=== PATIENT | female | born 1955 | race Caucasian/White ===

== ENCOUNTER 2016-11-01 10:19 | Emergency (ER) | payer OTHER ==
[~2016-11-01] VITALS: Ht 170.2 cm; Wt 64.4 kg
[~2016-11-01 10:19] MED LIST: ATORVASTATIN CA20 MG ORAL; COZAAR50 MG ORAL; ECOTRIN81 MG ORAL; FIORINAL 50-321 EACH PO; GABAPENTIN100 MG ORAL; IBUPROFEN600 MG ORAL; KLONOPIN0.5 MG ORAL; LIPITOR10 MG ORAL; LOSARTAN-HCTZ1 EAC2 ORAL; MAG-OX 400400 MG ORAL; MICARDIS HCT 81 EAC1 ORAL; NORVASC5 MG ORAL; RESTORIL30 MG ORAL; SERTRALINE HCL25 MG ORAL; TOPAMAX25 MG ORAL; TOPIRAMATE25 MG ORAL; TRAMADOL HCL50 MG ORAL; XANAX0.5 MG ORAL; ZANAFLEX4 MG ORAL
[2016-11-01 11:00] LABS: BASOPHILS % (AUTO) 1.4 % (0.0-2.0); EOSINOPHILS % (AUTO) 2.1 % (0.0-3.0); LYMPHOCYTES % (AUTO) 29.4 % (20.0-45.0); MEAN CORPUSCULAR HGB CONC 34.8 G/DL (32.0-36.0); MEAN CORPUSCULAR VOLUME 95 FL (80-99); MEAN PLATELET VOLUME 6.1 FL (6.5-10.1); MONOCYTES % (AUTO) 7.9 % (1.0-10.0); NEUTROPHILS % (AUTO) 59.2 % (45.0-75.0); PLATELET COUNT 253 K/UL (150-450); RED BLOOD COUNT 4.54 M/UL (4.20-5.40); RED CELL DISTRIBUTION WIDTH 11.3 % (11.6-14.8); WHITE BLOOD COUNT 4.9 K/UL (4.8-10.8)
[2016-11-01 11:04] LABS: INR 0.9 (0.9-1.1); PROTHROMBIN TIME 9.7 SEC (9.30-11.50)
[2016-11-01 11:12] LABS: ALBUMIN/GLOBULIN RATIO 1.9 (1.0-2.7); CALCIUM 9.7 mg/dL (8.6-10.2); GLOMERULAR FILTRATION RATE 56.2 mL/min (>60); POTASSIUM 4.4 mEQ/L (3.4-4.9); TOTAL PROTEIN 7.6 g/dL (6.6-8.7)
--- NOTE | 2016-11-01 11:15 | Diagnostic Imaging Report ---
Indications: Fall, head trauma, left arm weakness, unsteady gait, code stroke Technique: Continuous helical CT imaging of the brain was performed with automatic exposure control on a Siemens sensation [address] scanner. Axial and coronal images were reconstructed at 5 mm slice thickness and interval. CTDI volume(s): 70 mGy Total DLP: 1389 mGy-cm Findings: Comparison: 01/04/16 Old infarct right femoral peduncle/thalamus/oleary radiata with ex vacuo dilation of right lateral ventricle, old lacunar infarct left thalamus, chronic microvascular ischemic changes throughout bilateral cerebral periventricular and deep white matter, diffuse atrophy unchanged.. No evidence of mass or hemorrhage, other new attenuation abnormality, mass effect, midline shift, hydrocephalus or increased intracranial pressure. Bone window images are unremarkable. Visualized paranasal sinuses and mastoid air cells are clear.. Multiple scalp nodules again noted. IMPRESSION: No evidence of acute intracranial pathology, unchanged. Early/subtle acute abnormalities may be missed, however. If clinically indicated, MRI of the brain without and with gadolinium may be of benefit in further evaluation Stable chronic intracranial changes as described. Stable scalp nodules--consider sebaceous cysts, neurofibromatosis Critical results discussed with Dr. Childers, ER physician , by telephone at time of this dictation The CT scanner at [facility] is accredited by the [employer] and the scans are performed using protocols designed to limit radiation exposure to as low as reasonably achievable to attain images of sufficient resolution adequate for diagnostic evaluation.
[2016-11-01 11:30] VITALS: BP 168/97
[2016-11-01 12:23] LABS: APPEARANCE,URINE CLEAR; KETONES,URINE NEGATIVE (NEGATIVE); LEUKOCYTE ESTERASE ,URINE 1+ (NEGATIVE); NITRITE,URINE NEGATIVE (NEGATIVE); PH,URINE 6.5 (4.5-8.0); PROTEIN,URINE NEGATIVE (NEGATIVE); UROBILINOGEN,URINE NORMAL MG/DL (0.0-1.0)
[2016-11-01 12:30] VITALS: BP 177/110
[2016-11-01 12:39] LABS: BACTERIA,URINE FEW /HPF; RBC,URINE 0-2 /HPF (0 - 2); SQUAMOUS EPITHELIAL CELL,UR FEW /LPF (NONE/OCC); WBC,URINE 0-2 /HPF (0 - 2)
[2016-11-01 13:28] VITALS: BP 154/106
--- NOTE | 2016-11-01 13:35 | Emergency Room Report ---
History of Present Illness General Chief Complaint: Altered Mental Status Source: Patient Present Illness HPI The patient states that she tripped and fell last night. She states she hit her chin. She did call one of her friends over to see her at her home. Her friend dropped a glass and she has some cuts from the broken glass on her foot. She did apply Betadine. She had a tetanus shot 4 years ago. She has pain in her chin. She denies headache or weakness. She states that she did take an antianxiety medication yesterday. This was in addition to a sleeping pill that she takes. She denies alcohol use or drug use. She has no other complaints. Allergies: Coded Allergies: NO KNOWN ALLERGIES (Verified Allergy, Unknown, 01/04/16) Patient History Past Medical History: see triage record, HTN, CVA/TIA, migraines, psych hx Past Surgical History: hysterectomy Social History: Denies: alcohol use, drug use, smoking Reviewed Nursing Documentation: PMH: Agreed, PSxH: Agreed Nursing Documentation-PMH Hx Cardiac Problems: Yes Hx Hypertension: Yes Hx Cancer: Yes - Uterine Hx Gastrointestinal Problems: No Hx Neurological Problems: Yes Hx Cerebrovascular Accident: Yes Hx Transient Ischemic Attacks: Yes Review of Systems All Other Systems: negative except mentioned in HPI Physical Exam Vital Signs Date Time Temp Pulse Resp B/P Pulse Ox O2 Delivery O2 Flow Rate FiO2 11/01/16 10:29 98.2 66 16 183/92 95 Room Air Sp02 EP Interpretation: reviewed, normal General Appearance: no apparent distress, alert, GCS 15, non-toxic Head: normocephalic, other - Ecchymoses over the right chin and tenderness to palpation. Eyes: bilateral eye PERRL, bilateral eye normal inspection ENT: hearing grossly normal, normal pharynx, no angioedema, normal voice Neck: full range of motion, supple/symm/no masses Respiratory: chest non-tender, lungs clear, normal breath sounds, speaking full sentences Cardiovascular #1: regular rate, rhythm, no edema Gastrointestinal: normal bowel sounds, non tender, soft, non-distended, no guarding, no rebound Rectal: deferred Musculoskeletal: back normal, gait/station normal, normal range of motion, non- tender Neurologic: alert, oriented x3, responsive, motor strength/tone normal, sensory intact, speech normal Psychiatric: judgement/insight normal, memory normal, mood/affect normal, no suicidal/homicidal ideation Skin: normal color, no rash, warm/dry, well hydrated, other - Scattered abrasions on the top of the feet bilaterally. Medical Decision Making Diagnostic Impression: Primary Impression: Fall Additional Impressions: Facial contusion Multiple abrasions ER Course This patient presents status post mechanical trip and fall last night. The patient underwent CT of the head and face which is no acute findings. Specifically, there is no evidence of intracranial bleed or facial fracture. The patient has a facial contusion and multiple superficial abrasions on her bilateral feet. Overall, the patient's well-appearing. Laboratory workup showed an elevated creatinine at 1.0. The BUN is also slightly elevated and I suspect this is prerenal secondary to mild dehydration. The patient was educated extensively on the importance of increasing fluid intake. The patient indicated understanding. The patient's given close return precautions and followup instructions. Labs Test 11/01/16 10:54 11/01/16 12:00 White Blood Count 4.9 K/UL (4.8-10.8) Red Blood Count 4.54 M/UL (4.20-5.40) Hemoglobin 15.0 G/DL (12.0-16.0) Hematocrit 43.0 % (37.0-47.0) Mean Corpuscular Volume 95 FL (80-99) Mean Corpuscular Hemoglobin 33.0 PG (27.0-31.0) Mean Corpuscular Hemoglobin Concent 34.8 G/DL (32.0-36.0) Red Cell Distribution Width 11.3 % (11.6-14.8) Platelet Count 253 K/UL (150-450) Mean Platelet Volume 6.1 FL (6.5-10.1) Neutrophils (%) (Auto) 59.2 % (45.0-75.0) Lymphocytes (%) (Auto) 29.4 % (20.0-45.0) Monocytes (%) (Auto) 7.9 % (1.0-10.0) Eosinophils (%) (Auto) 2.1 % (0.0-3.0) Basophils (%) (Auto) 1.4 % (0.0-2.0) Prothrombin Time 9.7 SEC (9.30-11.50) Prothromb Time International Ratio 0.9 (0.9-1.1) Activated Partial Thromboplast Time 26 SEC (23-33) Sodium Level 143 mEQ/L (135-145) Potassium Level 4.4 mEQ/L (3.4-4.9) Chloride Level 100 mEQ/L (98-107) Carbon Dioxide Level 26 mEQ/L (20-30) Anion Gap 17 (5-15) Blood Urea Nitrogen 27 mg/dL (7-23) Creatinine 1.0 mg/dL (0.5-0.9) Estimat Glomerular Filtration Rate 56.2 mL/min (>60) Glucose Level 113 mg/dL (74-106) Calcium Level 9.7 mg/dL (8.6-10.2) Total Bilirubin 0.6 mg/dL (0.0-1.2) Aspartate Amino Transf (AST/SGOT) 16 U/L (5-40) Alanine Aminotransferase (ALT/SGPT) 14 U/L (3-33) Alkaline Phosphatase 85 U/L (35-104) Total Protein 7.6 g/dL (6.6-8.7) Albumin 5.0 g/dL (3.5-5.2) Globulin 2.6 g/dL Albumin/Globulin Ratio 1.9 (1.0-2.7) Urine Color Pale yellow Urine Appearance Clear Urine pH 6.5 (4.5-8.0) Urine Specific [place] 1.010 (1.005-1.035) Urine Protein Negative (NEGATIVE) Urine Glucose (UA) Negative (NEGATIVE) Urine Ketones Negative (NEGATIVE) Urine Occult Blood Negative (NEGATIVE) Urine Nitrite Negative (NEGATIVE) Urine Bilirubin Negative (NEGATIVE) Urine Urobilinogen Normal MG/DL (0.0-1.0) Urine Leukocyte Esterase 1+ (NEGATIVE) Urine RBC 0-2 /HPF (0 - 2) Urine WBC 0-2 /HPF (0 - 2) Urine Squamous Epithelial Cells Few /LPF (NONE/OCC) Urine Bacteria Few /HPF (NONE) EKG Diagnostic Results Rate: bradycardiac Rhythm: other ST Segments: no acute changes Other Impression S.russell w/ 1st degree AV block. Rhythm Strip Diag. Results EP Interpretation: yes Rate: 50's Rhythm: no PVC's, no ectopy Other Impression S.bradycardia CT/MRI/US Diagnostic Results CT/MRI/US Diagnostic Results : Imaging Test Ordered: CT head, CT max/facial Impression No facial fracture. No acute intracranial process. Last Vital Signs Date Time Temp Pulse Resp B/P Pulse Ox O2 Delivery O2 Flow Rate FiO2 11/01/16 12:30 65 18 177/110 99 Room Air 11/01/16 10:29 98.2 Disposition: HOME, SELF-CARE Condition: Improved Referrals: [facility],REFERRING (PCP) JOANNE OJEDA D.O. Nov 01, 2016 13:35
--- NOTE | 2016-11-04 18:42 | Cardiology Report ---
APPROVED REPORT EKG Measurement Heart [id number] Sinus bradycardia with 1st degree AV block Left axis deviation Possible Anterior infarct, age undetermined Abnormal ECG
== END 2016-11-01 13:41 | disposition home or self-care (01) ==
LOC: EMR 10:53
DX: S00.83XA Contusion of other part of head, initial encounter (principal); S90.811A Abrasion, right foot, initial encounter; S90.812A Abrasion, left foot, initial encounter; W25.XXXA Contact with sharp glass, initial encounter; Y92.89 Other specified places as the place of occurrence of the external cause; I10 Essential (primary) hypertension; Z85.42 Personal history of malignant neoplasm of other parts of uterus; Z86.73 Personal history of transient ischemic attack (TIA), and cerebral infarction without residual deficits
CPT/HCPCS: 36415; 70450; 70486; 80053; 81003; 82962; 85025; 85610; 85730; 93005; 96360

== ENCOUNTER → 2016-12-29 | Emergency (ER) | payer OTHER ==
[~2016-12-29] VITALS: Ht 170.2 cm; Wt 69.9 kg
[~2016-12-29] MED LIST changes: +KEFLEX500 MG ORAL
--- NOTE | 2016-12-29 13:35 | Emergency Room Report ---
History of Present Illness General Chief Complaint: Foreign Body Source: Medical Record Present Illness HPI [id number] with abrasion to ball of left foot after "checking out a work site" last night. Was wearing "thick tennis socks" but no shoes [place] something scrape her foot Tetanus updated 2 years ago Decreased sensation to left foot from prior CVA Allergies: Coded Allergies: NO KNOWN ALLERGIES (Verified Allergy, Unknown, 01/04/16) Patient History Past Medical History: CVA/TIA Past Surgical History: none Pertinent Family History: none Social History: Denies: alcohol use, drug use, smoking Last Menstrual Period: post Now: No Immunizations: UTD Reviewed Nursing Documentation: PMH: Agreed, PSxH: Agreed Nursing Documentation-PMH Past Medical History: No History, Except For Hx Cardiac Problems: Yes Hx Hypertension: Yes Hx Cancer: Yes - Uterine Hx Gastrointestinal Problems: No Hx Neurological Problems: Yes Hx Cerebrovascular Accident: Yes Hx Transient Ischemic Attacks: Yes Review of Systems All Other Systems: negative except mentioned in HPI Physical Exam Vital Signs Date Time Temp Pulse Resp B/P Pulse Ox O2 Delivery O2 Flow Rate FiO2 12/29/16 12:32 97.3 78 18 161/94 98 Room Air Sp02 EP Interpretation: reviewed, normal General Appearance: normal inspection, well appearing, no apparent distress, alert Head: normocephalic, atraumatic ENT: normal ENT inspection, hearing grossly normal, normal voice Neck: normal inspection, full range of motion, supple, no bony tend Respiratory: normal inspection, lungs clear, normal breath sounds, no respiratory distress, no retraction, no wheezing Cardiovascular #1: regular rate, rhythm, no edema Gastrointestinal: normal inspection, normal bowel sounds, non tender, soft, no guarding, no hernia Genitourinary: no CVA tenderness Musculoskeletal: normal inspection, back normal, normal range of motion, Ethan' s Sign negative Neurologic: normal inspection, alert, oriented x3, responsive, surgical specialist III-XII nml as tested, speech normal, other - Left upper/lower extremity: 3/5 strength. Mild contorsion of extremities Skin: other - Left foot ball: 2cm abrasion, skin tear. No FB. No bleeding. No sign of infection. Sensation intact Medical Decision Making Diagnostic Impression: Primary Impression: Abrasion foot/toe ER Course PPx Keflex for Abx Tetanus already up to date PMD followup as needed DC home Last Vital Signs Date Time Temp Pulse Resp B/P Pulse Ox O2 Delivery O2 Flow Rate FiO2 12/29/16 12:32 97.3 78 18 161/94 98 Room Air Status: improved Disposition: HOME, SELF-CARE Condition: Improved Scripts Cephalexin* (KEFLEX*) 500 Mg Capsule 500 MG ORAL Q6H for 7 Days, #28 CAP 0 Refills Prov: AC WHEAT M.D. 12/29/16 Patient Instructions: Abrasion, [id number] Additional Instructions: - Take antibiotics as prescribed to prevent infection - Change dressing daily - Follow up with your doctor in 1 week as needed AC WHEAT M.D. Dec 29, 2016 13:35
[2016-12-29 13:37] VITALS: BP 161/94
== END | disposition home or self-care (01) ==
LOC: EMR 13:28
DX: S90.812A Abrasion, left foot, initial encounter (principal); X58.XXXA Exposure to other specified factors, initial encounter; Y93.9 Activity, unspecified; Y92.9 Unspecified place or not applicable; Z86.73 Personal history of transient ischemic attack (TIA), and cerebral infarction without residual deficits; I10 Essential (primary) hypertension; Z85.42 Personal history of malignant neoplasm of other parts of uterus
CPT/HCPCS: 99283

== ENCOUNTER 2017-06-18 16:10 | Emergency (ER) | payer OTHER ==
[~2017-06-18] VITALS: Ht 167.6 cm; Wt 70.3 kg
[2017-06-18] MEDS ORDERED: Dicyclomine HCl 10mg/5ml oral soln ORAL ONE (16:30)
[2017-06-18 17:00] VITALS: BP 134/80
[2017-06-18 17:55] LABS: APPEARANCE,URINE CLEAR; BILIRUBIN, URINE NEGATIVE (NEGATIVE); GLUCOSE, URINE (UA) NEGATIVE (NEGATIVE); KETONES,URINE NEGATIVE (NEGATIVE); LEUKOCYTE ESTERASE ,URINE NEGATIVE (NEGATIVE); NITRITE,URINE NEGATIVE (NEGATIVE); PH,URINE 5 (4.5-8.0); PROTEIN,URINE 1+ (NEGATIVE); UROBILINOGEN,URINE NORMAL MG/DL (0.0-1.0)
[2017-06-18 17:58] LABS: COLOR,URINE YELLOW
--- NOTE | 2017-06-18 18:23 | Emergency Room Report ---
History of Present Illness General Chief Complaint: General Complaint Present Illness HPI 62-year-old female presents to the emergency department complaining of cough, increased nasal congestion and phlegm, vomiting and diarrhea x3 days. Patient denies abdominal pain/tenderness. Denies recent travel. Reports fevers, chills and increase in urinary frequency. Denies orthopnea or swelling of the LE's. Denies CP, Palpitations, LOC, AMS, dizziness, Changes in Vision, Sensation , paresthesias, or a sudden severe headache. Allergies: Coded Allergies: NO KNOWN ALLERGIES (Verified Allergy, Unknown, 01/04/16) Patient History Past Medical History: see triage record, CVA/TIA Past Surgical History: none Pertinent Family History: none Immunizations: UTD Reviewed Nursing Documentation: PMH: Agreed, PSxH: Agreed Nursing Documentation-PMH Hx Cardiac Problems: Yes Hx Hypertension: Yes Hx Cancer: Yes - Uterine Hx Gastrointestinal Problems: No Hx Neurological Problems: Yes Hx Cerebrovascular Accident: Yes Hx Transient Ischemic Attacks: Yes Review of Systems All Other Systems: negative except mentioned in HPI Physical Exam Vital Signs Date Time Temp Pulse Resp B/P (MAP) Pulse Ox O2 Delivery O2 Flow Rate FiO2 06/18/17 16:19 97.9 68 20 137/86 94 Room Air Sp02 EP Interpretation: reviewed, normal General Appearance: well appearing, no apparent distress, alert, GCS 15, non- toxic Head: normocephalic, atraumatic ENT: hearing grossly normal, normal pharynx, normal voice, uvula midline Neck: full range of motion, no meningismus Respiratory: lungs clear, normal breath sounds, speaking full sentences, wheezing Cardiovascular #1: regular rate, rhythm, no edema Gastrointestinal: normal bowel sounds, non tender, soft Rectal: deferred Genitourinary: normal inspection Musculoskeletal: back normal, gait/station normal, normal range of motion, non- tender Neurologic: alert, oriented x3, responsive, motor strength/tone normal, sensory intact, normal gait, speech normal, grossly normal Psychiatric: judgement/insight normal Skin: normal color, no rash, warm/dry, well hydrated Lymphatic: no adenopathy Medical Decision Making PA Attestation Dr. Soares is my supervising Physician whom patient management has been discussed with. Diagnostic Impression: Primary Impression: Upper respiratory infection, acute Additional Impressions: Cough Diarrhea Qualified Codes: R19.7 - Diarrhea, unspecified ER Course Pt. presents to the ED c/o cough congestion bodyaches, fevers, chills and headaches x [ ] Ddx considered but are not limited to URI, pneumonia, PE, strep pharyngitis, meningitis. Vital signs: Pt. is afebrile, the remaining VS are WNL H&PE are most consistent with URI- no meningeal signs, oropharynx is not involved, no evidence of bacterial infection at this time. ORDERS: n CXR: unremarkable -- UA: WNL ED INTERVENTIONS: None required at this time. --PT. EDUCATION: Discussed antibiotic resistance with inappropriate prescribing of antibiotics for viral illnesses. Discussed signs and symptoms to indicate viral illness versus bacterial illness. DISCHARGE: At this time pt. is stable for d/c to home. Will provide printed patient care instructions, and any necessary prescriptions. Care plan and follow up instructions have been discussed with the patient prior to discharge. Chest X-Ray Diagnostic Results Chest X-Ray Diagnostic Results : Chest X-Ray Ordered: Yes # of Views/Limited/Complete: 1 View Indication: Shortness of Breath EP Interpretation: Yes ED Xray: Interpretation reviewed, by supervising MD, and agrees with findings. Interpretation: no consolidation, no effusion, no pneumothorax, no acute cardiopulmonary disease Impression: No acute disease Electronically Signed by: Earlene Jara PA-C Last Vital Signs Date Time Temp Pulse Resp B/P (MAP) Pulse Ox O2 Delivery O2 Flow Rate FiO2 06/18/17 17:00 78 20 134/80 94 Room Air 06/18/17 16:19 97.9 Disposition: HOME, SELF-CARE Condition: Stable Scripts Oseltamivir Phosphate (Tamiflu) 75 Mg Capsule 75 MG ORAL TWICE A DAY for 5 Days, #10 CAP Prov: Earlene Jara P.A. 06/18/17 Dicyclomine Hcl* (BENTYL*) 10 Mg Capsule 10 MG ORAL FOUR TIMES A DAY, #4 CAP Prov: Earlene Jara P.A. 06/18/17 Guaifenesin (Guaifenesin) 1,200 Mg Tab.er.12h 1200 MG PO BID for 10 Days, #20 TAB Prov: Earlene Jara P.A. 06/18/17 Codeine/Promethazine Hcl* (PROMETHAZINE-CODEINE SYRUP*) 118 Ml Syrup 5 ML ORAL Q6H Y for For Cough, #120 ML 0 Refills Prov: Earlene Jara 06/18/17 Patient Instructions: Upper Respiratory Infection, Adult, [id number] Additional Instructions: Take medications as directed. Follow up with a Primary Care Provider in 3-5 days, even if your symptoms have resolved. --Please review list of primary care clinics, if you do not already have a primary care provider Return sooner to ED if new symptoms occur, or current symptoms become worse. Do not drink alcohol, drive, or operate heavy machinery while taking Cough Syrup as this may cause drowsiness. - Please note that this Emergency Department Report was dictated using [employer] technology software, occasionally this can lead to erroneous entry secondary to interpretation by the dictation equipment. Earlene Jara Jun 18, 2017 18:23
[2017-06-18] MEDS ORDERED: PROMETHAZINE-C118 M1 ORAL (18:39)
[2017-06-18] MEDS ORDERED: BENTYL10 MG ORAL (18:39)
[2017-06-18] MEDS ORDERED: GUAIFENESIN1200 MG PO (18:39)
[2017-06-18] MEDS ORDERED: TAMIFLU75 MG ORAL (18:40)
[2017-06-18 19:02] VITALS: BP 134/80
--- NOTE | 2017-06-19 08:34 | Diagnostic Imaging Report ---
Indication: Chest pain Technique: One view of the chest Comparison: 01/04/2016 Findings: Lungs and pleural spaces are clear. Heart size is normal. Calcified breast implant is noted on the right. There are degenerative thoracic spondylosis changes. No significant interim change Impression: No acute process
== END 2017-06-18 19:02 | disposition home or self-care (01) ==
LOC: EMR 16:56
DX: J06.9 Acute upper respiratory infection, unspecified (principal); R19.7 Diarrhea, unspecified; I10 Essential (primary) hypertension; Z86.73 Personal history of transient ischemic attack (TIA), and cerebral infarction without residual deficits; Z85.42 Personal history of malignant neoplasm of other parts of uterus
CPT/HCPCS: 71045; 81003; 99284